=== PATIENT | male | born 2005 | race Caucasian/White ===

== ENCOUNTER 2024-06-30 09:26 | Emergency (ER) | payer BC, SELFPAY ==
[2024-06-30 09:28] VITALS: BP 115/75
--- NOTE | 2024-06-30 11:35 | ED.GENMED ---
History of Present Illness
General
Chief Complaint: Back Pain
Source: patient
Exam Limitations: none
Time Seen by Provider: 06/30/24 11:14
History of Present Illness
History of Present Illness:
18-year-old male presents complaining of severe lower back pain that radiates down the posterior lateral right thigh. This started yesterday and got worse. He has a history of sciatic pain requiring ablations of the L5 nerve root. He has a
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 He also has history of amplified musculoskeletal pain syndrome. [facility] [place] [facility] as [facility] for these issues. He is on gabapentin daily. He is
also taking methotrexate and an injectable Humira.
Phy Exam
Physical Exam
Physical Exam:
General: Uncomfortable appearing male no acute respiratory distress
HEENT: Normocephalic atraumatic
Heart: Regular rate and rhythm no murmurs
Lungs: Clear no wheeze
Abdomen is soft nontender nondistended
Musculoskeletal exam: No reproducible tenderness to the posterior lateral right thigh or lumbar spine. The pain is made worse with active motion of the left leg using pain to the right leg.
Neurologic exam: Good sensation to bilateral lower extremities. Bilateral patellar reflexes are 2+ good strength to lower extremities
Skin warm no rash
Course
Orders/Labs/Results
Orders:
Orders
06/30/24 11:29
Dexamethasone Sod Phosphate [Decadron] 10 mg IV NOW STA
Ketorolac [Toradol] 30 mg IV NOW STA
diazePAM [Valium Injection] 5 mg IV NOW STA
Vital Signs
Initial and Last Documented VS:
Initial Vital Signs
Temp Pulse Resp BP Pulse Ox
98.4 F 62 18 115/75 100
06/30/24 09:28 06/30/24 09:28 06/30/24 09:28 06/30/24 09:28 06/30/24 09:28
Last Documented Vital Signs
Temp Pulse Resp BP Pulse Ox
98.4 F 62 18 115/75 100
06/30/24 09:28 06/30/24 09:28 06/30/24 09:28 06/30/24 09:28 06/30/24 09:28
MDM/Problems Addressed
Differential Diagnosis Includes:
Back and right leg pain. Comes most consistent with radiculopathy. No signs to suggest cauda equina. The pain is made worse with ambulation and he is having trouble ambulating secondary to the pain. No fever to suggest infectious source. Will
try anti-inflammatories with muscle relaxer including Toradol and Valium as Decadron IV.
*Critical Care Note
Total Time (30-74mins, 75-104mins- exclusive of procedures): Not Applicable
Update Note
Update Note:
Patient reevaluated feeling much better now ambulatory. He walked to the bathroom. Will prescribe a couple more days of prednisone and some muscle relaxers for his discomfort. He will follow-up with his treating physicians and specialists
otherwise
No indication for emergent MRI or further intervention
ED Attending Note
-
Portions of this chart may have been created with voice recognition software.� Occasional wrong word or��sound alike� substitutions may have occurred due to the inherent limitations of voice recognition software.
Discharge Plan
Departure
Patient Disposition: Home (Routine Discharge)
Date of Disposition: 06/30/24
Time of Disposition: 12:44
Patient with high blood pressure during this ER visit?: No
Discharge Problem:
Radiculopathy
Instructions: Radiculopathy (DC)
Prescriptions:
New
prednisone 20 mg tablet
40 mg PO DAILY 5 Days Qty: 10 0RF
diazepam [Valium] 5 mg tablet
5 mg PO BID PRN (Reason: muscle spasm) Qty: 7 0RF
Referrals:
Apurva Oconnor, [Family Provider] -
Activity Restrictions/Additional Instructions:
You may use warm compresses. Continue with prednisone starting tomorrow. Use Valium if needed for spasm. Follow-up with your treating physicians and consider increasing dose of gabapentin if needed
Interventions
Interventions:
*Risk Screen - Suicide Last Done: 06/30/24 09:28
*General Assessment Last Done: 06/30/24 09:28
*Neglect/Abuse Screening Last Done: 06/30/24 09:28
*ED COVID-19 Vaccine History Last Done: 06/30/24 11:03
ED-Musculoskeletal Assessment Last Done: 06/30/24 11:06
Discharge Date and Time
Print Language: FAROESE
[2024-06-30] MEDS: TORADOL 30 MG IV (11:40)
[2024-06-30] MEDS: DECADRON 10 MG IV (11:40)
[2024-06-30] MEDS: VALIUM INJECTION 5 MG IV (11:40)
[2024-06-30 13:03] VITALS: BP 112/78
== END 2024-06-30 13:04 | disposition home or self-care (01) ==
LOC: EMR 09:26
PROVIDERS: EMERGENCY PHYSICIAN Student in an Organized Health Care Education/Training Program; FAMILY PHYSICIAN Family Medicine
DX: M54.10 Radiculopathy, site unspecified (principal)
CPT/HCPCS: 99284; 96374; 96375 ×2